=== PATIENT | female | born 1955 | race Caucasian/White ===

== ENCOUNTER → 2019-09-10 | Day surgery (SDC) | payer MEDICARE ==
[2019-09-08 16:50] LABS: BASOPHILS # (AUTO) 0.1 (0.0-0.1); BASOPHILS % 0.9 % (0.0-1.0); EOSINOPHILS # (AUTO) 0.1 (0.0-0.4); EOSINOPHILS % 1.4 % (0.0-6.0); HEMOGLOBIN 13.8 g/dL (12.0-16.0); LYMPHOCYTES # (AUTO) 2.1 (1.0-3.2); LYMPHOCYTES % 31.9 % (18.0-39.1); MEAN CORPUSCULAR HEMOGLOBIN 28.3 pg (28-32); MEAN CORPUSCULAR HGB CONC 32.9 g/dL (31-35); MEAN CORPUSCULAR VOLUME 86.1 fL (81-99); MONOCYTES # (AUTO) 0.5 (0.2-0.8); MONOCYTES % 8.3 % (4.4-11.3); NEUTROPHILS # (AUTO) 3.7 (2.1-6.9); NEUTROPHILS % 57.2 % (38.7-80.0); PLATELET COUNT 245 x10e3/uL (140-360); RED BLOOD COUNT 4.88 x10e6/uL (3.6-5.1); RED CELL DISTRIBUTION WIDTH 14.2 % (11.7-14.4)
[~2019-09-10] MED LIST: ACYCLOVIR200 MG PO; AMLODIPINE BESYL5 MG PO; LIDOCAINE HCL 2% LOCAL INJ 5 ML SDV VIAL INJ ONE; MIDAZOLAM HCL 2 MG/2 ML VIAL ONE; PROPOFOL IV EMULSION 10 MG/ML 50 ML VIAL ONE
--- OUTSIDE RECORDS SUMMARY | 2019-09-10 07:30 | XMS REPORT ---
Author [facility] Address Unknown Phone Unavailable Care Team Providers Care Ivf Embryologist Name Role Phone Unavailable Unavailable Payers Payer Name Policy Type Policy Number Effective Date Expiration Date Problems This patient has no known problems. Allergies, Adverse Reactions, Alerts Allergy Name Allergy Type Status Severity Reaction(s) Onset Date Inactive Date Treating Clinician Comments No Known Drug Intolerances DA Active U 1997-10-15 00:00:00 Medications This patient has no known medications. Results Test Description Test Time Test Comments Text Results Atomic Results Result Comments - XR CHEST 2 V 2019-03-27 12:51:00 FAX: Melvin Tyler MD [phone] [place]: St: REG Name: YOCASTA ZULUAGA [facility] : 1955 Age/S: 63/F [address] [place] [address] Unit #: [id number] Loc: [place] [address] Phys: Melvin Christine MD Acct: [id number] Dis Date: Status: REG CLI PHONE #: [phone] Exam Date: 03/27/2019 1211 FAX #: [phone] Reason: COUGH R05 EXAMS: CPT CODE: [id number] XR CHEST 2 V 92302 CLINICAL HISTORY: COUGH R05 COMPARISON: NONE PA and lateral films of the chest demonstrate that heart size is normal. Lung chaudhry are clear. No evidence of pneumonia or congestive failure is seen. Regional skeletal structures are within normal limits. IMPRESSION: No evidence of pneumonia or congestive failure is seen. at 8107 Reported and signed by: Jaret Serra M.D. CC: Melvin Christine MD Technologist: RT Jeronimo(Erin) Trnscjatin Date/Time/By: 03/27/2019 (9396) : By: Indira Orig Print D/T: S: 03/27/2019 (1858) PAGE 1 Signed Report
[2019-09-10 10:48] VITALS: BP 122/75
--- NOTE | 2019-09-10 18:00 | Operative Report ---
DATE OF PROCEDURE: 09/10/2019 SURGEON: Tamir Smith MD PROCEDURE PERFORMED: Colonoscopy. PREOPERATIVE DIAGNOSIS: History of colon polyps. POSTOPERATIVE DIAGNOSIS: Colon polyp found in the descending colon and internal hemorrhoids present. PREOPERATIVE MEDICATIONS: Consisted of MAC. DESCRIPTION OF PROCEDURE: Using an DVS [employer]estream video colonoscope was inserted in the patient's rectum and advanced without difficulty to the level of the cecum. The colon was studied from that level back down to the rectum. In the distal descending colon, a 4 mm size benign polyp was found and removed with hot biopsy forceps. As we withdrew the colonoscope back down towards the rectum, internal hemorrhoids were found. The colonoscope was withdrawn from the patient's rectum and the procedure was ended. Tamir Smith MD SAF/MODL /[id number]
== END | disposition home or self-care (01) ==
LOC: OR 07:27
PROVIDERS: ATTEND Internal Medicine Gastroenterology
DX: Z09 Encounter for follow-up examination after completed treatment for conditions other than malignant neoplasm (principal); K63.5 Polyp of colon; K64.8 Other hemorrhoids; I10 Essential (primary) hypertension; J40 Bronchitis, not specified as acute or chronic; Z88.8 Allergy status to other drugs, medicaments and biological substances; Z01.810 Encounter for preprocedural cardiovascular examination; Z01.812 Encounter for preprocedural laboratory examination; Z68.39 Body mass index [BMI] 39.0-39.9, adult
CPT/HCPCS: 36415; 45384; 85025; 88305; 93005; J2001; J2250; J2704